=== PATIENT | male | born 1945 | race Caucasian/White ===

== ENCOUNTER 2019-12-12 13:20 | Emergency (ER) | payer OTHER, SELFPAY ==
[2019-12-12 13:30] VITALS: BP 172/79; PULSE 88; RESP 16; TEMP 37.2; O2SAT 98
--- NOTE | 2019-12-12 13:44 | ED.WOUNDLAC ---
HPI - Wound/Laceration General Chief Complaint: Wound/Laceration Stated Complaint: cat scratch on left fore finger and middle finger Time Seen by Provider: 12/12/19 13:44 Source: patient Mode of arrival: ambulatory Limitations: no limitations History of Present Illness HPI narrative: Tim Claudio is a 74 yo male with a new PMH of type 2 diabetes, hypertension, cataract, type II a prostate cancer, who comes to express care for treatment of 2 small scratches on his left hand from a cat. Cat belongs to son's girlfriend, is an indoor cat. Is currently being treated for a prostate infection with use of Bactrim. His 2 diabetes is been very responsive to Metformin dropping his A1c 3 months ago from 12.1-6.2. Blood pressure is monitored regularly and is usually is in normal range Related Data Home Medications Medication Instructions Recorded Confirmed clonidine HCl 0.1 mg PO DAILY 12/12/19 12/12/19 metformin 500 mg PO BID 12/12/19 12/12/19 sulfamethoxazole-trimethoprim 1 tablet PO Q12H 12/12/19 12/12/19 [Bactrim DS] Allergies Allergy/AdvReac Type Severity Reaction Status Date / Time codeine Allergy Mild Itching Verified 12/12/19 13:40 Penicillins Allergy Mild Itching Verified 12/12/19 13:40 Review of Systems Review of Systems: Narrative: CONSTITUTIONAL: Denies fever, chills, sweats. EYES: Denies visual changes, redness, discharge. ENT: Denies rhinorrhea, congestion, sore throat, otalgia. CARDIOVASCULAR: Denies chest pain, palpitations, edema. RESPIRATORY: Denies dyspnea, wheezing, cough GASTROINTESTINAL: Denies abdominal pain, nausea, vomiting, diarrhea. GENITOURINARY: Denies dysuria, hematuria, abnormal discharge SKIN: Denies rash or itching. She is from cat on end of finger 2 and 3 NEUROLOGIC: Denies numbness, or focal weakness. PSYCHIATRIC: Denies anxiety or depression. [facility] Past Medical History Medical History Cataracts, bilateral Diabetes HTN (hypertension) Prostate cancer Family History Family History Other Hypertension Social History Social History Smoking status: Never smoker Alcohol intake: former Comments At time of signature, I agree with nursing past medical, surgical, social and family history. There is no relevant family history pertinent to the presenting complaint. Exam Narrative: Exam Narrative: GENERAL: This is a well-nourished, well-developed patient, in mild distress. HEAD: normocephalic, atraumatic. EYES: Sclera clear/white. Vision is grossly intact. EARS: External ears normal, . Hearing grossly intact. NOSE: External nose normal without nasal discharge, nares without redness, no rhinorrhea. THROAT: Mucous membranes moist, NECK: Neck supple, non-tender CARDIOVASCULAR: Regular rate and rhythm without murmurs, gallops, or rubs. RESPIRATORY: Clear to auscultation. Breath sounds equal bilaterally. No wheezes, rales, or rhonchi. GASTROINTESTINAL: Abdomen soft, SKIN: warm, intact with no suspicious lesions or rash, good texture and turgor.2 small scratches (1 cm each) on distal, palmar tip of finges 2,3 L hand NEURO: awake, alert, and oriented to person, place and time. There were no obvious focal neurologic abnormalities. Steady gait EXTREMITIES: Normal range of motion. BACK: Nontender without deformity Course Course Emergency Course: Finger soaked and redressed-he is on Bactrim for prostate infection and Bactrim can be used as an alternative for preventative treatment of cat scratch so no additional antibiotics were prescribed This vaccine given Follow-up with PCP Vital Signs Vital signs: Vital Signs Temperature 98.9 F 12/12/19 13:30 Pulse Rate 88 12/12/19 13:30 Respiratory Rate 16 12/12/19 13:30 Blood Pressure 172/79 H 12/12/19 13:30 Pulse Oximetry 98 12/12/19 13:30 Temperature 98.
[2019-12-12] MEDS: TETANUS,DIPHTHERIA,AC PERTUSSIS ADULT (0.5 ML) BOOSTRIX IM (13:52)
== END 2019-12-12 14:12 | disposition home or self-care (01) ==
PROVIDERS: Emergency Provider Nurse Practitioner
DX: S60.411A Abrasion of left index finger, initial encounter (principal); S60.413A Abrasion of left middle finger, initial encounter; W55.03XA Scratched by cat, initial encounter; Z23 Encounter for immunization; E11.9 Type 2 diabetes mellitus without complications; I10 Essential (primary) hypertension; H26.9 Unspecified cataract; Z85.46 Personal history of malignant neoplasm of prostate; Z79.84 Long term (current) use of oral hypoglycemic drugs
CPT/HCPCS: 90471; 90715; 99212; G0463

== ENCOUNTER 2022-07-24 11:16 | Emergency (ER) | payer OTHER, SELFPAY ==
[2022-07-24 11:23] VITALS: BP 128/74; PULSE 76; RESP 16; TEMP 36.5; O2SAT 98
--- NOTE | 2022-07-24 11:51 | ED.URI ---
HPI - URI/Sore Throat General Chief Complaint: Upper Respiratory Infection Stated Complaint: sore throat Time Seen by Provider: 07/24/22 11:53 Source: patient, RN notes reviewed and old records reviewed Mode of arrival: ambulatory Limitations: no limitations History of Present Illness HPI Narrative: 76 year old male presents to [facility] with complaints of 8 day duration of sore throat. Patient states that he feels like he has cotton back there that throat is so dry he can hardly swallow. Patient reports that he has been taking sinus medication, using throat lozenges and also has taken Tylenol for his discomfort. Patient has noted redness to back of throat with uvula red and swollen. Patient reports some noted sinus drainage denies any sinus pressure or any headache pain. MD elicited complaint: sore throat Onset (ago): day(s) (8) Consistency: constant Severity: moderate Pain scale (0-10): 5 Able to tolerate fluids by mouth: Yes Exacerbating factors: swallowing Treatments prior to arrival: other (sinus medication, Tylenol and throat lozenges) Related Data Home Medications Medication Instructions Recorded Confirmed metformin 500 mg tablet 500 mg PO BID 12/12/19 07/24/22 Allergies Allergy/AdvReac Type Severity Reaction Status Date / Time codeine Allergy Mild Itching Verified 07/24/22 11:39 Penicillins Allergy Mild Itching Verified 07/24/22 11:39 Review of Systems Review of Systems: CONSTITUTIONAL: Denies malaise, chills, sweats, or fever. EYES: Denies visual changes, redness, or discharge. ENT: Reports rhinorrhea, congestion,no sinus pain, no otalgia positive for sore throat. CARDIOVASCULAR: Denies chest pain, palpitations, or edema. RESPIRATORY: Reports no cough.? Denies dyspnea. GASTROINTESTINAL: Denies abdominal pain, nausea, vomiting, diarrhea SKIN: Denies rash or itching. MUSCULOSKELETAL: Denies myalgia. NEUROLOGIC: Denies headache. All systems reviewed & are unremarkable except as noted in HPI and below PMFSH Past Medical History Medical History (Updated 07/25/22 @ 10:41 by Aliay Mckinney NP) Cataracts, bilateral Diabetes GERD (gastroesophageal reflux disease) HTN (hypertension) Prostate cancer radiation treatments Surgical History Surgical History (Updated 07/25/22 @ 10:38 by Aliya Mckinney NP) History of appendectomy History of tonsillectomy and adenoidectomy Hx of cholecystectomy Family History Family History Other Hypertension Social History Social History (Updated 07/25/22 @ 10:36 by Aliya Mckinney NP) Smoking status: Never smoker Alcohol intake: former Substance use: never Occupation/Education: retired Gender identity (if verbalized by the patient): Male Comments At time of signature, agree with nursing past medical, surgical, social and family history. There is no relevant family history pertinent to the presenting complaint Exam Narrative: GENERAL: Well-appearing, well-nourished, and in no acute distress. HEAD: Normocephalic EYES: PERRLA, conjunctivae clear ENT: Nares clear, turbinates edematous and erythematous, clear discharge. Mucous membranes moist. TM pearly peña with dull light reflex bilaterally; no tragal tenderness. Oropharynx erythematous without lesions. Tonsils not present and throat red without exudate, no drooling, no hoarseness, no trismus, uvula red swollen but midline.post nasal discharge noted NECK: Supple. No lymphadenopathy CHEST: Clear to auscultation, breath sounds equal. No wheezing, rhonchi, rales, or stridor. No respiratory distress, speaks in full sentences.SAO2 98% on room air HEART: Regular rate and rhythm. No murmur heard. SKIN: Warm, dry, no rash. NEURO: Alert and oriented x3. PSYCH: Normal mood and affect Course Course Emergency Course: Patient is aware of diagnosis, understands and agrees to treatment plan.? Anticipatory guidance g
== END 2022-07-24 12:15 | disposition home or self-care (01) ==
PROVIDERS: Emergency Provider Registered Nurse
DX: K12.2 Cellulitis and abscess of mouth (principal); J02.9 Acute pharyngitis, unspecified; E11.9 Type 2 diabetes mellitus without complications; K21.9 Gastro-esophageal reflux disease without esophagitis; I10 Essential (primary) hypertension; Z85.46 Personal history of malignant neoplasm of prostate; Z92.3 Personal history of irradiation; Z79.84 Long term (current) use of oral hypoglycemic drugs
CPT/HCPCS: 87081; 87880; 99213; G0463